=== PATIENT | female | born 1965 | race Caucasian/White ===

== ENCOUNTER → 2016-11-23 | Outpatient (REF) | payer BC ==
[~2016-11-23] MED LIST: /CIPR75TA PO; ACET65TA PO; ALAW0.02 OU; ALEV220C2 PO; CELE20TA PO; CITA20TA4 PO; CRAN500C2 PO; FISH120012 PO; LEVO88TA3 PO; LORA10TA2 PO; MULTIVIT OR; MULTTAB24 PO; OSTETAB PO; PRED20TAB PO; PRED5TA PO; RIZA10TA2 PO; SYNT100T PO; VITA100T98 PO
== END ==
LOC: M LAB REF 16:09
PROVIDERS: ATTEND Physician Assistant
DX: R30.0 Dysuria (principal)